=== PATIENT | male | born 1955 | race Caucasian/White ===

== ENCOUNTER → 2016-09-06 | Outpatient (REF) | payer OTHER, MEDICAID ==
[~2016-09-06] MED LIST: ALBU83IN INH; ASPI81TA85 PO; ATOR1TAB18 PO; LISI2.5T3 PO; METO25TAB PO; PLAV75TA38 PO
[2016-09-06 19:05] LABS: ALBUMIN 4.1 GM/DL (3.2-5.2); ALBUMIN/GLOBULIN RATIO 1.32 (1.00-1.93); ALKALINE PHOSPHATASE 77 U/L (45-117); ALT/SGPT 22 U/L (12-78); ANION GAP 6 MEQ/L (8-16); AST/SGOT 17 U/L (15-37); BILIRUBIN,TOTAL 0.7 MG/DL (0.2-1.0); BLOOD UREA NITROGEN 15 MG/DL (7-18); CALCIUM LEVEL 9.2 MG/DL (8.8-10.2); CARBON DIOXIDE LEVEL 30 MEQ/L (21-32); CHLORIDE LEVEL 104 MEQ/L (98-107); CREATININE FOR GFR 0.83 MG/DL (0.70-1.30); GLOMERULAR FILTRATION RATE > 60.0 (>49); GLUCOSE, FASTING 78 MG/DL (80-110); POTASSIUM SERUM 4.5 MEQ/L (3.5-5.1); SODIUM LEVEL 140 MEQ/L (136-145); TOTAL PROTEIN 7.2 GM/DL (6.4-8.2)
[2016-09-06 19:15] LABS: BASO % 0.4 % (0.0-1.0); EOS # 0.1 K/mm3 (0.0-0.50); EOS % 1.6 % (0.0-3.0); LARGE UNSTAINED CELL # 0.1 K/mm3 (0.0-0.4); LARGE UNSTAINED CELL % 1.8 % (0.0-4.0); LYMPH # 1.5 K/mm3 (1.5-4.5); LYMPH % 19.8 % (24.0-44.0); MEAN CORPUSCULAR HEMOGLOBIN 34.6 pg (27.0-33.0); MEAN CORPUSCULAR HGB CONC 33.6 g/dl (32.0-36.5); MONO # 0.4 K/mm3 (0.0-0.8); MONO % 5.1 % (0.0-5.0); NEUTROPHILS # 5.5 K/mm3 (1.8-7.7); NEUTROPHILS % 71.3 % (36.0-66.0); PLATELET COUNT, AUTOMATED 194 k/mm3 (150-450); RED CELL DISTRIBUTION WIDTH 12.8 % (11.5-14.5); WHITE BLOOD COUNT 7.7 K/mm3 (4.0-10.0)
== END ==
LOC: M SFHCCAPE 12:25
PROVIDERS: ATTEND Physician Assistant
DX: F32.1 Major depressive disorder, single episode, moderate (principal)

== ENCOUNTER → 2017-06-10 | Outpatient (REF) | payer OTHER, MEDICAID ==
[2017-06-10 17:38] LABS: ALBUMIN 3.9 GM/DL (3.2-5.2); ALBUMIN/GLOBULIN RATIO 1.34 (1.00-1.93); ALKALINE PHOSPHATASE 94 U/L (45-117); ALT/SGPT 27 U/L (12-78); ANION GAP 8 MEQ/L (8-16); AST/SGOT 20 U/L (7-37); BILIRUBIN,TOTAL 0.4 MG/DL (0.2-1.0); BLOOD UREA NITROGEN 18 MG/DL (7-18); CALCIUM LEVEL 8.6 MG/DL (8.8-10.2); CARBON DIOXIDE LEVEL 28 MEQ/L (21-32); CHLORIDE LEVEL 107 MEQ/L (98-107); CHOLESTEROL LEVEL 111 MG/DL (<200); CHOLESTEROL RISK RATIO 2.361 (<5); CREATININE FOR GFR 0.88 MG/DL (0.70-1.30); GLOMERULAR FILTRATION RATE > 60.0 (>49); GLUCOSE, FASTING 98 MG/DL (70-100); HDL CHOLESTEROL 47 MG/DL (>40); LDL CHOLESTEROL 49.4 MG/DL (<100); MAGNESIUM LEVEL 2.2 MG/DL (1.8-2.4); NON-HDL-C 64 MG/DL; POTASSIUM SERUM 4.1 MEQ/L (3.5-5.1); SODIUM LEVEL 143 MEQ/L (136-145); TOTAL PROTEIN 6.8 GM/DL (6.4-8.2); TRIGLYCERIDES LEVEL 73 MG/DL (<150)
[2017-06-10 19:26] LABS: BASO % 0.5 % (0.0-1.0); EOS # 0.3 10^3/uL (0.0-0.50); EOS % 5.2 % (0.0-3.0); HEMATOCRIT 49.5 % (42.0-52.0); HEMOGLOBIN 16.7 g/dl (14.0-18.0); IMMATURE GRANULOCYTE % 0.2 % (0-3.0); LYMPH # 1.7 10^3/uL (1.5-4.5); LYMPH % 29.7 % (24.0-44.0); MEAN CORPUSCULAR HGB CONC 33.7 g/dl (32.0-36.5); MEAN CORPUSCULAR VOLUME 97.8 fl (80.0-96.0); MONO # 0.5 10^3/uL (0.0-0.8); MONO % 9.4 % (0.0-5.0); NEUTROPHILS # 3.2 10^3/uL (1.8-7.7); PLATELET COUNT, AUTOMATED 157 10^3/uL (150-450); RED BLOOD COUNT 5.06 10^6/uL (4.30-6.10); RED CELL DISTRIBUTION WIDTH 12.1 % (11.5-14.5); WHITE BLOOD COUNT 5.8 10^3/uL (4.0-10.0)
== END ==
LOC: M SFHCCAPE 08:02
DX: E78.2 Mixed hyperlipidemia (principal); I10 Essential (primary) hypertension
CPT/HCPCS: 84443

== ENCOUNTER 2017-06-20 10:59 | Emergency (ER) | payer OTHER, MEDICAID ==
[2017-06-20 11:45] LABS: BASO % 0.6 % (0.0-1.0); EOS # 0.3 10^3/uL (0.0-0.50); EOS % 4.1 % (0.0-3.0); HEMATOCRIT 47.4 % (42.0-52.0); HEMOGLOBIN 16.4 g/dl (14.0-18.0); IMMATURE GRANULOCYTE % 0.3 % (0-3.0); LYMPH # 1.7 10^3/uL (1.5-4.5); LYMPH % 23.8 % (24.0-44.0); MEAN CORPUSCULAR HEMOGLOBIN 33.7 pg (27.0-33.0); MEAN CORPUSCULAR HGB CONC 34.6 g/dl (32.0-36.5); MEAN CORPUSCULAR VOLUME 97.5 fl (80.0-96.0); MONO # 0.6 10^3/uL (0.0-0.8); NEUTROPHILS # 4.5 10^3/uL (1.8-7.7); NEUTROPHILS % 62.2 % (36.0-66.0); PLATELET COUNT, AUTOMATED 137 10^3/uL (150-450); RED BLOOD COUNT 4.86 10^6/uL (4.30-6.10); RED CELL DISTRIBUTION WIDTH 11.9 % (11.5-14.5); WHITE BLOOD COUNT 7.2 10^3/uL (4.0-10.0)
[2017-06-20 12:16] LABS: ANION GAP 5 MEQ/L (8-16); BLOOD UREA NITROGEN 21 MG/DL (7-18); CARBON DIOXIDE LEVEL 30 MEQ/L (21-32); CHLORIDE LEVEL 105 MEQ/L (98-107); CK-MB VALUE MASS 4.8 NG/ML (0.0-3.6); CPK CREATINE PHOSPHOKINASE 304 U/L (39-308); CREATININE FOR GFR 0.84 MG/DL (0.70-1.30); GLOMERULAR FILTRATION RATE > 60.0 (>49); GLUCOSE, FASTING 83 MG/DL (70-100); MB/CK RELATIVE INDEX 1.57 (< OR =4); POTASSIUM SERUM 4.5 MEQ/L (3.5-5.1); SODIUM LEVEL 140 MEQ/L (136-145); TROPONIN I < 0.02 NG/ML (< 0.10)
[2017-06-20] MEDS ORDERED: ISOVUE-370 76% 100ML VIAL (Q9967) As Ordered (15:33)
[2017-06-20] MEDS: SUCRALFATE SUSP 1GM/10ML UD PO (16:32)
[2017-06-20 18:38] LABS: CK-MB VALUE MASS 4.8 NG/ML (0.0-3.6); CPK CREATINE PHOSPHOKINASE 286 U/L (39-308); MB/CK RELATIVE INDEX 1.67 (< OR =4); TROPONIN I < 0.02 NG/ML (< 0.10)
== END 2017-06-20 19:04 | disposition home or self-care (01) ==
LOC: M ED 10:59
DX: R07.9 Chest pain, unspecified (principal); M54.6 Pain in thoracic spine; I10 Essential (primary) hypertension; I25.2 Old myocardial infarction; Z79.82 Long term (current) use of aspirin; Z79.899 Other long term (current) drug therapy
CPT/HCPCS: Q9967

== ENCOUNTER → 2017-11-04 | Outpatient (REF) | payer SELFPAY, OTHER ==
[2017-11-04 17:56] LABS: APPEARANCE, URINE CLEAR (CLEAR); BACTERIA, URINE AUTO NEGATIVE (NEGATIVE); BILIRUBIN, URINE AUTO NEGATIVE (NEGATIVE); BLOOD, URINE BLOOD 2+ (NEGATIVE); COLOR, URINE YELLOW (YELLOW); GLUCOSE, URINE (UA) AUTO NEGATIVE (NEGATIVE); KETONE, URINE AUTO NEGATIVE (NEGATIVE); LEUKOCYTE ESTERASE, URINE AUTO NEGATIVE (NEGATIVE); MUCUS, URINE SMALL (NEGATIVE); NITRITE, URINE AUTO NEGATIVE (NEGATIVE); PROTEIN, URINE AUTO NEGATIVE (NEGATIVE); RBC, URINE AUTO 2 /HPF (0-3); SPECIFIC GRAVITY URINE AUTO 1.012 (1.002-1.035); SQUAMOUS EPITHELIAL CELL UR AU 0 /HPF (0-6); UROBILINOGEN, URINE AUTO 0.2 mg/dL (0.0-2.0); WBC, URINE AUTO 2 /HPF (0-3)
== END ==
LOC: M SFHCCAPE 10:09
DX: R53.83 Other fatigue (principal); R53.81 Other malaise

== ENCOUNTER 2017-11-30 08:18 | Emergency (ER) | payer SELFPAY ==
[2017-11-30] MEDS ORDERED: NEOSPORIN OINT 0.9 GM PKT (FLOOR STOCK) As Ordered (09:47)
[2017-11-30] MEDS: BACTRIM 160MG/800MG DS TAB PO (09:51)
[2017-11-30] MEDS: ADACEL/BOOSTRIX VACCINE (DIPHTH/PERTUSS/ACELL/TETANUS)0.5ML SYR (90715) IM (09:51)
[2017-11-30] MEDS: POLYSPORIN TOPICAL OINTMENT 15GM TOP (09:53)
== END 2017-11-30 10:10 | disposition home or self-care (01) ==
LOC: M ED 08:18
DX: M79.89 Other specified soft tissue disorders (principal); T23.021A Burn of unspecified degree of single right finger (nail) except thumb, initial encounter; X15.2XXA Contact with hotplate, initial encounter; Y92.59 Other trade areas as the place of occurrence of the external cause; Y99.0 Civilian activity done for income or pay; I10 Essential (primary) hypertension; E78.5 Hyperlipidemia, unspecified; I25.10 Atherosclerotic heart disease of native coronary artery without angina pectoris; Z95.1 Presence of aortocoronary bypass graft; Z95.5 Presence of coronary angioplasty implant and graft
CPT/HCPCS: 90715

== ENCOUNTER 2018-05-20 12:17 | Inpatient (IN) | payer OTHER, SELFPAY ==
[~2018-05-20] VITALS: Ht 177.8 cm; Wt 90.9 kg
[~2018-05-20 12:17] MED LIST changes: -ATOR1TAB18 PO; +ATOR80TA59 PO; +BACT800T5 PO; +BREO1INH3 INH; -LISI2.5T3 PO; +LISI2.5T5 PO; +METO25TA4 PO; -METO25TAB PO; +NITR400A5 TL; +PLAV1TAB2 PO; -PLAV75TA38 PO
[2018-05-20 14:40] LABS: HEMATOCRIT 52.7 % (42.0-52.0); HEMOGLOBIN 18.3 g/dl (13.5-17.5); MEAN CORPUSCULAR HEMOGLOBIN 33.8 pg (27.0-33.0); MEAN CORPUSCULAR HGB CONC 34.7 g/dl (32.0-36.5); MEAN CORPUSCULAR VOLUME 97.2 fl (80.0-96.0); PLATELET COUNT, AUTOMATED 133 10^3/uL (150-450); RED BLOOD COUNT 5.42 10^6/uL (4.30-6.10); WHITE BLOOD COUNT 7.9 10^3/uL (4.0-10.0)
[2018-05-20 14:59] LABS: AMPHETAMINES LEVEL URINE NEGATIVE (NEGATIVE); BARBITURATES URINE NEGATIVE (NEGATIVE); BENZODIAZEPINES URINE NEGATIVE (NEGATIVE); CANNABINOIDS URINE POSITIVE (NEGATIVE); COCAINE METABOLITE URINE NEGATIVE (NEGATIVE); METHADONE URINE NEGATIVE (NEGATIVE); OPIATES URINE NEGATIVE (NEGATIVE); PHENCYCLIDINE URINE NEGATIVE (NEGATIVE)
--- NOTE | 2018-05-20 15:26 | REP ---
CT Head without contrast HISTORY: Visual disturbance COMPARISON: None There is no intraparenchymal hemorrhage, acute infarct, mass or midline shift. The ventricular system is normal in appearance. There is no extra cerebral collection. There is no fracture. The visualized sinuses are clear. IMPRESSION: There is no intracranial lesion. Electronically Signed by Ab Francisco MD 05/20/2018 03:18 P
[2018-05-20 15:31] LABS: ACETAMINOPHEN LEVEL < 2.0 UG/ML (10.0-30.0); ALBUMIN 3.8 GM/DL (3.2-5.2); ALT/SGPT 27 U/L (12-78); BILIRUBIN,DIRECT 0.2 MG/DL (0.0-0.2); BILIRUBIN,TOTAL 0.6 MG/DL (0.2-1.0); BLOOD UREA NITROGEN 18 MG/DL (7-18); CALCIUM LEVEL 8.8 MG/DL (8.8-10.2); CARBON DIOXIDE LEVEL 27 MEQ/L (21-32); CHLORIDE LEVEL 103 MEQ/L (98-107); CREATININE FOR GFR 0.99 MG/DL (0.70-1.30); ETHYL ALCOHOL (ETHANOL) < 0.003 % (0.000-0.010); GLOMERULAR FILTRATION RATE > 60.0 (>49); GLUCOSE, FASTING 112 MG/DL (70-100); POTASSIUM SERUM 3.9 MEQ/L (3.5-5.1); SALICYLATE LEVEL < 1.7 MG/DL (5.0-30.0); SODIUM LEVEL 139 MEQ/L (136-145)
[2018-05-20] MEDS ORDERED: MAALOX 30 ML SUSP *UDC PO PRN (16:30)
[2018-05-20] MEDS ORDERED: MOM 30ML SUSPENSION UDC PO PRN (16:30)
[2018-05-20 18:00] VITALS: BP 142/72
[2018-05-20] MEDS ORDERED: NITROGLYCERIN 0.4 MG SUBL TABLET SL PRN (19:45)
[2018-05-20] MEDS: traZODone 50 MG TAB PO PRN (20:52)
[2018-05-20] MEDS: ACETAMINOPHEN TAB 650MG DOSE (2X325MG) PO PRN (20:52)
[2018-05-20] MEDS: LORazepam 1 MG TAB PO PRN (20:53)
[2018-05-20] MEDS: METOPROLOL TART 12.5 MG PER 1/2 TAB PO SCH (20:53)
[2018-05-21 06:59] VITALS: BP 128/75
[2018-05-21] MEDS: ATORVASTATIN 20 MG TAB PO SCH (08:02)
[2018-05-21] MEDS: ASPIRIN 81 MG ENTERIC TAB PO SCH (08:03)
[2018-05-21] MEDS: LISINOPRIL *2.5 MG* TAB PO SCH (08:03)
[2018-05-21] MEDS: METOPROLOL TART 12.5 MG PER 1/2 TAB PO SCH ×2 (08:03→21:40)
--- NOTE | 2018-05-21 09:47 | HPEPDOC ---
[facility] Medical History & Physical Date of Admission May 20, 2018 History and Physical PCP: [facility] ATTENDING: Dr. Lisset Alberto HPI: 62 yo M admitted to [facility] for unspecified depressive disorder, being medically examined today. The patient reported in the emergency department seeing intermittent flashes of light when moving his eyes for the past few months. He states this has not occurred since he has been on the unit. He states it occurs on and off. Not a daily occurrence. He denies blurred vision, diplopia or visual loss. Denies NAVARRO. Denies N/V, photophobia/phonophobia. No recent eye exam. CT head in the emergency department was noted to be negative. No acute medical complaints today. Denies any fevers, chills, weakness, fatigue, CP, SOB, cough, palpitations, abdominal pain, N/V/D or changes in bowel or bladder habits. PMHx: Anxiety Depression Hypertension Dyslipidemia CAD/FL 2016 PSHX: Cardiac stents 2016 Umbilical hernia repair Left wrist fracture repair Low back surgery 2 SOCHX: Resides in: [facility] Marital Status: Single Kids: None Employment: hospital manager Tobacco use: One half pack per day ETOH: One shot of liquor per day Illicit Drugs: Denies IV Drug Use: Denies Tattoos done unprofessionally: Denies FAMHX: Mother: Alive, lupus Father: , old age per patient Siblings: 2 brothers, one sister Alive, well Children: None Unexpected deaths due to medical reasons: None. ROS: As noted in HPI, otherwise 11pt ROS of systems reviewed and unremarkable. PE: GEN: 62 yo M, appears stated age. Well-nourished, well developed. No acute distress. Alert and oriented x 3. Pleasant, interactive. HEENT: Normocephalic, atraumatic. Pupils are equal, round, and reactive to light. Extraocular movements are intact. No nystagmus appreciated. Sclera are nonicteric. Conjunctiva without injection. Nose midline. Nasal turbinates without bogginess. EACs both patent BL. TMs both visualized and arizmendi with good cone of light, no bulging or erythema. No facial asymmetry. Moist mucous membranes. Upper dentures. Pharynx pink and moist, no cobblestoning. Neck supple, trachea midline. No lymphadenopathy or thyromegaly appreciated. CHEST: Regular rate and rhythm, +S1, +S2 LUNGS: Clear to auscultation bilaterally. No wheezes, rales, or rhonchi. Breathing appears symmetric and easy. Patient is speaking in full sentences. No accessory muscle use. ABD: Round, soft, non-tender, non-distended. +Bowel sounds throughout. No rebound or guarding. No costovertebral angle tenderness. EXT: Pulses 2+ bilaterally dorsalis pedis and radial. No lower extremity edema appreciated. SKIN: [place], dry, warm. Capillary refill <2sec. No rashes. NEURO: Alert and oriented x 3. Cranial nerves III-XII are intact. No focal deficits appreciated. EKG: SINUS RHYTHM NONSPECIFIC T-WAVE ABNORMALITY POSSIBLE PRIOR INFERIOR WALL INFARCT COMPARED TO THE LAST 4 TRACINGS IN THE SYSTEM, NO SIGNIFICANT CHANGES Electronically Signed On 06-21-2017 0:23:35 EST by Shaun [facility] There is no intracranial lesion. Electronically Signed by Ab Francisco MD 05/20/2018 03:18 P A&P: 62 yo M admitted to [facility] for unspecified depressive disorder, 1. Psych. Plan per Psychiatry. EKG on file. 2. Nicotine dependence. Patch available. 3. CAD/stent. Continue aspirin 81 mg daily. Continue Lipitor 80 mg daily. Continue Lopressor 12.5 mg by mouth twice a day. Patient denies any chest discomfort symptoms. Continue outpatient follow-up with PCP. 4. Follow up with PCP on discharge. 5. Hypertension. BP 120/70. Continue Lopressor 12.5 mg by mouth twice a day. Continue lisinopril 2.5 mg daily. Monitor. 6. Dyslipidemia. Continue Lipitor 80 mg by mouth daily. 7. Visual disturbance. [facility] 05/20/18 neg. Pt states it has not been occurring while on the unit. Monitor and consider further testing if recurs. 8. Staff member Fausto present throughout exam. Vital Signs Vital Signs Date Time Temp Pulse Resp B/P (MAP) Pulse Ox O2 Delivery O2 Flow Rate FiO2 05/21/18 08:03 88 120/70 05/21/18 06:59 99.1 18 05/20/18 18:00 93 Room Air Laboratory Data Labs 24H Laboratory Tests 2 05/20/18 14:29: Nucleated Red Blood Cells % (auto) 0.0, Anion Gap 9, Glomerular Filtration Rate > 60.0, Calcium Level 8.8, Aspartate Amino Transf (AST/SGOT) 25, Alanine Aminotransferase (ALT/SGPT) 27, Alkaline Phosphatase 75, Total Bilirubin 0.6, Direct Bilirubin 0.2, Total Protein 7.0, Albumin 3.8, Albumin/Globulin Ratio 1.19, Thyroid Stimulating Hormone (TSH) 1.080, Salicylates Level < 1.7L, Urine Amphetamines Screen NEGATIVE, Urine Benzodiazepines Screen NEGATIVE, Urine Opiates Screen NEGATIVE, Urine Methadone Screen NEGATIVE, Acetaminophen Level < 2.0L, Urine Barbiturates Screen NEGATIVE, Urine Phencyclidine Screen NEGATIVE, Urine Cocaine Metabolite Screen NEGATIVE, Urine Cannabinoids Screen POSITIVEH, Ethyl Alcohol Level < 0.003 CBC/BMP Laboratory Tests 05/20/18 14:29 Red Blood Count 5.42, Mean Corpuscular Volume 97.2 H, Mean Corpuscular Hemoglobin 33.8 H, Mean Corpuscular Hemoglobin Concent 34.7, Red Cell Distribution Width 12.1 Home Medications Scheduled Atorvastatin Calcium (Atorvastatin Calcium) 80 Mg Tab, 80 MG PO DAILY Lisinopril (Lisinopril) 2.5 Mg Tab, 2.5 MG PO DAILY Metoprolol Tartrate (Metoprolol Tartrate) 25 Mg Tab, 0.5 TAB PO BID Scheduled PRN (Nitroglycerin Lingual) 400 Mcg/[place] Aer, 400 MCG TL for ANGINA Miscellaneous Medications Aspirin (Aspir-81) 81 Mg Tab, 81 MG PO Allergies Coded Allergies: No Known Allergies (Unverified , 04/20/16) Nancy Ferrara May 21, 2018 09:47
[2018-05-21] MEDS ORDERED: SERTRALINE HCL 25 MG TABLET PO ONE (11:15)
--- NOTE | 2018-05-21 11:49 | MHHPEPDOC ---
General Date Of Admission: May 20, 2018 Legal Status: 9.13 Chief Complaint "I've been feeling seriously depressed for the past 2 days." History of Present Illness HISTORY OF THE PRESENT ILLNESS: Patient is a 62 -year-old , male, with no previous psych history who presented to ED with complaint of increasing depression for the past 2 days that is worse when he's home alone rather than at work where it isn't as bad. He endorsed associated decreased appetite and insomnia secondary to depressed mood in the ED. Endorsed psychosocial stressors that included his finances, work, and loss of his father 1 year ago. Per ED, pt was tearful at times. He did deny SI/HI in the ED. He does have a supportive girlfriend for the 18yrs. Pt seen and states he's had a "blanket of depression" hit him with all the stressors he has going on in his life. States that home is getting to be too much for him especially with the finances. States he and his girlfriend are renting a home together and pitch in the pay the monthly fee but her 2 adult children are also there and don't pay any of the bills after it was first agreed when they moved in that they would. States it's just becoming too much and wants to move out and live on his own, possibly in [place] close to his family that he is very close with when his lease ends in June. States he's told his girlfriend and she supports his decision. States he also feels that he and his girlfriend are more friends than a couple as he's sleeping on the couch and just doesn't feel he gets companionship from his girlfriend. States she is a good friend though. States his work is very supportive and he's well paid but that the finances at home are just too much causing a lot of stress that leads to insomnia. Denies SI/HI, hallucinations, delusions. Agreeable to start zoloft for depression, risks/benefits discussed. Feels safe here. Psychiatric Review of Systems Depression (2 or more weeks): depressed mood, insomnia/hypersomnia (insomnia), difficulty concentrating, appetite changes [place] (4 or more days of): denies Psychosis: denies Anxiety: situational anxiety, stressor related anxiety Anxiety/ 6 months or more of: difficulty concentrating, sleep disturbance Past Psychiatric History Previous Psychiatric Diagnosis: denies Previous Psychiatric Admissions: denies Suicide Attempts: denies Psychiatric Follow-up: denies Psychiatric medications: tried something 1yr ago for depression prescribed by his pcp that he only took for 2 days b/c he didn't like the way it made him feel Past Medical History Medical Problems high cholesterol, htn Head Injury: No Seizures: No Hospitalizations: No Surgeries: Yes (low back surgery x2, left wrist fracture repair) Family Medical/Psychiatric HX Medical Problems noncontributory Psychiatric Disorders: No Addiction: No Suicide Attemps/Completions: No Addiction History nicotine, alcohol (1 vodka shot on the rocks when at work after shift at work only 6days/wk; doesn't drink anymore than 1) Social History Childhood: born and raised in [place], 2 parent home, 2 brothers (1 older and 1 younger), 1 younger sister. [place] child [place]. Supportive family. [place]. Family in [place] and would like to move back there and be closer to them as he has good relationships with them all. 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 , no kids Mental Status Examination General Appearance: well groomed, appears stated age, hospital scubs/clothing Build: average Demeanor: average, other (pleasant) Eye Contact: average Activity: average Behavior: cooperative Speech: clear, normal volume, reg/rate,rhythm,volume Mood: depressed, anxious Mood overwhelmed Affect: constricted, appropriate, congruent, anxious Thought Process: logical/linear, depressed, intact Thought Content (Delusions): none reported, denies SI, HI, AVH Thought Content (Other): none reported, appropriate Thought Content (Aggressive): none reported Perception (Hallucinations): none reported Perception (Other): none reported Cognition (Impairment of): none reported Cognition(Intelligence Est.): average Oriented: Awake, Alert, Oriented times three Insight: fair Judgment: Fair Psychosis: Denies Diagnoses depression unspecified r/o adjustment d/o with anxiety and depression r/o generalized anxiety d/o complicated bereavement Assessment Pt seen and states he's had a "blanket of depression" hit him with all the stressors he has going on in his life. States that home is getting to be too much for him especially with the finances. States he and his girlfriend are renting a home together and pitch in the pay the monthly fee but her 2 adult children are also there and don't pay any of the bills after it was first agreed when they moved in that they would. States it's just becoming too much and wants to move out and live on his own, possibly in [place] close to his family that he is very close with when his lease ends in June. States he's told his girlfriend and she supports his decision. States he also feels that he and his girlfriend are more friends than a couple as he's sleeping on the couch and just doesn't feel he gets companionship from his girlfriend. States she is a good friend though. States his work is very supportive and he's well paid but that the finances at home are just too much causing a lot of stress that leads to insomnia. Denies SI/HI, hallucinations, delusions. Agreeable to start zoloft for depression, risks/benefits discussed. Feels safe here. Pt appears to most likely be suffer from an adjustment d/o with depression and anxiety symptoms zapata to current psychiatric stressors. Initial Treatment Plan 1. Patient was admitted on a 9.13 status. 2. Complete history was obtained. 3. With patients permission, family will be contacted and database will be expanded. 4. Patients medication regimen will be reviewed and changed accordingly. 5. Patient will be provided with protected environment. 6. Patient will be treated with individual, group, and milieu therapies. 7. Patient will receive supportive psych-education. 8. Discharge planning will commence immediately. 9. Outpatient follow-up treatment will be strongly recommended. 10. The initial treatment plan will focus initially on: * Depression. * Risk for suicide. * Substance abuse. 11. zoloft 25mg daily ESTIMATED LENGTH OF STAY: 3-5 DAYS. TIME SPENT COUNSELING AND COORDINATING INITIAL CARE: 60 minutes. Vital Signs Vital Signs Date Time Temp Pulse Resp B/P (MAP) Pulse Ox O2 Delivery O2 Flow Rate FiO2 05/21/18 08:03 88 120/70 05/21/18 06:59 99.1 18 05/20/18 18:00 93 Room Air Laboratory Data 24H Labs Laboratory Tests 2 05/20/18 14:29: Nucleated Red Blood Cells % (auto) 0.0, Anion Gap 9, Glomerular Filtration Rate > 60.0, Calcium Level 8.8, Aspartate Amino Transf (AST/SGOT) 25, Alanine Aminotransferase (ALT/SGPT) 27, Alkaline Phosphatase 75, Total Bilirubin 0.6, Direct Bilirubin 0.2, Total Protein 7.0, Albumin 3.8, Albumin/Globulin Ratio 1.19, Thyroid Stimulating Hormone (TSH) 1.080, Salicylates Level < 1.7L, Urine Amphetamines Screen NEGATIVE, Urine Benzodiazepines Screen NEGATIVE, Urine Opiates Screen NEGATIVE, Urine Methadone Screen NEGATIVE, Acetaminophen Level < 2.0L, Urine Barbiturates Screen NEGATIVE, Urine Phencyclidine Screen NEGATIVE, Urine Cocaine Metabolite Screen NEGATIVE, Urine Cannabinoids Screen POSITIVEH, Ethyl Alcohol Level < 0.003 CBC/BMP Laboratory Tests 05/20/18 14:29 Red Blood Count 5.42, Mean Corpuscular Volume 97.2 H, Mean Corpuscular Hemoglobin 33.8 H, Mean Corpuscular Hemoglobin Concent 34.7, Red Cell Distribution Width 12.1 Medications Scheduled Atorvastatin Calcium (Atorvastatin Calcium) 80 Mg Tab, 80 MG PO DAILY, (Reported) Lisinopril (Lisinopril) 2.5 Mg Tab, 2.5 MG PO DAILY, (Reported) Metoprolol Tartrate (Metoprolol Tartrate) 25 Mg Tab, 0.5 TAB PO BID, (Reported) Scheduled PRN (Nitroglycerin Lingual) 400 Mcg/[place] Aer, 400 MCG TL for ANGINA, (Reported) Miscellaneous Medications Aspirin (Aspir-81) 81 Mg Tab, 81 MG PO, (Reported) Allergies Coded Allergies: No Known Allergies (Unverified , 04/20/16) ZEYNEP GRAY DO May 21, 2018 11:49
[2018-05-21] MEDS: NICOTINE 21MG/24HR 1 EA TRANSDERMAL TD SCH (17:45)
[2018-05-21 18:46] VITALS: BP 130/60
[2018-05-21] MEDS: LORazepam 1 MG TAB PO PRN (21:39)
[2018-05-21] MEDS: traZODone 50 MG TAB PO PRN (21:39)
[2018-05-22] MEDS: ACETAMINOPHEN TAB 650MG DOSE (2X325MG) PO PRN (06:24)
[2018-05-22 06:32] VITALS: BP_SYST 132; BP_SYST 154; BP_DIAS 63; BP_DIAS 84
[2018-05-22 08:10] LABS: HEMATOCRIT 50.9 % (42.0-52.0); HEMOGLOBIN 17.4 g/dl (13.5-17.5); MEAN CORPUSCULAR HEMOGLOBIN 33.6 pg (27.0-33.0); MEAN CORPUSCULAR HGB CONC 34.2 g/dl (32.0-36.5); MEAN CORPUSCULAR VOLUME 98.3 fl (80.0-96.0); PLATELET COUNT, AUTOMATED 136 10^3/uL (150-450); RED BLOOD COUNT 5.18 10^6/uL (4.30-6.10); WHITE BLOOD COUNT 6.4 10^3/uL (4.0-10.0)
[2018-05-22 08:41] VITALS: BP 132/63
[2018-05-22] MEDS: NICOTINE 21MG/24HR 1 EA TRANSDERMAL TD SCH (08:41)
[2018-05-22] MEDS: ATORVASTATIN 20 MG TAB PO SCH (08:41)
[2018-05-22] MEDS: METOPROLOL TART 12.5 MG PER 1/2 TAB PO SCH (08:41)
[2018-05-22] MEDS: ASPIRIN 81 MG ENTERIC TAB PO SCH (08:41)
[2018-05-22] MEDS: LISINOPRIL *2.5 MG* TAB PO SCH (08:41)
[2018-05-22] MEDS ORDERED: SERTRALINE HCL 25 MG TABLET PO SCH (09:00)
--- NOTE | 2018-05-22 09:41 | MHDSPDOC ---
[facility] Discharge Summary Discharge Summary DATE OF ADMISSION: May 20, 2018 at 16:17 DATE OF DISCHARGE: May 22, 2018 DISCHARGE DIAGNOSES: depression unspecified r/o adjustment d/o with anxiety and depression r/o generalized anxiety d/o complicated bereavement REASON FOR ADMISSION: Patient is a 62 -year-old , male, with no previous psych history who presented to ED with complaint of increasing depression for the past 2 days that is worse when he's home alone rather than at work where it isn't as bad. He endorsed associated decreased appetite and insomnia secondary to depressed mood in the ED. Endorsed psychosocial stressors that included his finances, work, and loss of his father 1 year ago. Per ED, pt was tearful at times. He did deny SI/HI in the ED. He does have a supportive girlfriend for the 18yrs. Pt seen and states he's had a "blanket of depression" hit him with all the stressors he has going on in his life. States that home is getting to be too much for him especially with the finances. States he and his girlfriend are carmelita ting a home together and pitch in the pay the monthly fee but her 2 adult children are also there and don't pay any of the bills after it was first agreed when they moved in that they would. States it's just becoming too much and wants to move out and live on his own, possibly in [place] close to his family that he is very close with when his lease ends in June. States he's told his girlfriend and she supports his decision. States he also feels that he and his girlfriend are more friends than a couple as he's sleeping on the couch and just doesn't feel he gets companionship from his girlfriend. States she is a good friend though. States his work is very supportive and he's well paid but that the finances at home are just too much causing a lot of stress that leads to insomnia. Denies SI/HI, hallucinations, delusions. Agreeable to start zoloft for depression, risks/benefits discussed. Feels safe here. CONSULTANTS INVOLVED: medicine regarding "flashes in vision" and recommended opt homology visit outpatient to evaluate. Pt does endorse floaters in vision so possibly has cataracts. TREATMENT AND PROGRESS ON THE UNIT : Pt was admitted to [facility], seen for psychiatric assessment and started on zoloft 25mg daily for mood. He was provided trazodone 50mg qhs prn insomnia. Pt found his medications beneficial and tolerated them well. He attended groups daily during his stay. His symptoms improved with treatment. On day of discharge he denied depression, anxiety, insomnia, SI/HI, hallucinations, delusions. He was discharged home with follow-up at [facility]. He felt safe for discharge DISCHARGE ASSESSMENT: Pt seen and states that his mood is good and that he's tolerating his zoloft, denies side effects, feels is beneficial. States he slept well last night with use of trazodone. Feels he is tolerating his medications and they're beneficial. He is attending groups and finding them helpful. He denies depression, anxiety, insomnia, SI/HI, hallucinations, delusions. Pt feels safe to be discharged home. MENTAL STATUS EXAMINATION ON DISCHARGE: General Appearance: well groomed, appears stated age, hospital scrubs/clothing Build: average Demeanor: average, other (pleasant) Eye Contact: average Activity: average Behavior: cooperative Speech: clear, normal volume, reg/rate,rhythm,volume Mood: euthymic Mood "ok" Affect: euthymic, appropriate, congruent, calm Thought Process: logical/linear, intact Thought Content (Delusions): none reported, denies SI, HI, AVH. States "I'm a Yarsanism and wouldn't ever harm myself...That's just not an option as I want to reach salvation when I eventually." Thought Content (Other): none reported, appropriate Thought Content (Aggressive): none reported Perception (Hallucinations): none reported Perception (Other): none reported Cognition (Impairment of): none reported Cognition(Intelligence Est.): average Oriented: Awake, Alert, Oriented times three Insight: good Judgment: good Psychosis: Denies MEDICATIONS ON DISCHARGE: zoloft 25mg daily PLAN/FOLLOWUP ARRANGEMENTS: D/c home with follow-up at [facility] and opthomology doctor. The amount of time spent in the coordination of care for this patient was approximately 30 minutes. Vital Signs/I&Os Vital Signs Date Time Temp Pulse Resp B/P (MAP) Pulse Ox O2 Delivery O2 Flow Rate FiO2 05/22/18 08:41 74 132/63 05/22/18 06:32 97.6 20 Room Air 05/20/18 18:00 93 Laboratory Data Labs 24H Laboratory Tests 2 05/22/18 07:34: Nucleated Red Blood Cells % (auto) 0.0 CBC/BMP Laboratory Tests 05/22/18 07:34 Red Blood Count 5.18, Mean Corpuscular Volume 98.3 H, Mean Corpuscular Hemoglobi n 33.6 H, Mean Corpuscular Hemoglobin Concent 34.2, Red Cell Distribution Width 11.9 Medications Scheduled Atorvastatin Calcium (Atorvastatin Calcium) 80 Mg Tab, 80 MG PO DAILY, (Reported) Lisinopril (Lisinopril) 2.5 Mg Tab, 2.5 MG PO DAILY, (Reported) Metoprolol Tartrate (Metoprolol Tartrate) 25 Mg Tab, 0.5 TAB PO BID, (Reported) Scheduled PRN (Nitroglycerin Lingual) 400 Mcg/[place] Aer, 400 MCG TL for ANGINA, (Reported) Miscellaneous Medications Aspirin (Aspir-81) 81 Mg Tab, 81 MG PO, (Reported) Allergies Coded Allergies: No Known Allergies (Unverified , 04/20/16) ZEYNEP GRAY DO May 22, 2018 09:41
[2018-05-22] MEDS ORDERED: SERT25TA PO (09:43)
[2018-05-22] MEDS ORDERED: TRAZO50TA PO (09:43)
== END 2018-05-22 13:39 | disposition home or self-care (01) | DRG 754 ==
LOC: M ED 12:17 → M ED INP 16:17 → M PSY 17:14
PROVIDERS: ADMIT Psychiatry & Neurology Psychiatry; ATTEND Psychiatry & Neurology Psychiatry
DX: F32.9 Major depressive disorder, single episode, unspecified (principal); H43.393 Other vitreous opacities, bilateral; I10 Essential (primary) hypertension; F43.23 Adjustment disorder with mixed anxiety and depressed mood; F41.1 Generalized anxiety disorder; F17.200 Nicotine dependence, unspecified, uncomplicated; E78.5 Hyperlipidemia, unspecified; I25.10 Atherosclerotic heart disease of native coronary artery without angina pectoris; I25.2 Old myocardial infarction; Z95.5 Presence of coronary angioplasty implant and graft; Z87.81 Personal history of (healed) traumatic fracture; Z79.899 Other long term (current) drug therapy

== ENCOUNTER 2018-05-23 16:22 | Emergency (ER) | payer OTHER ==
[~2018-05-23] VITALS: Ht 177.8 cm; Wt 90.5 kg
[~2018-05-23 16:22] MED LIST changes: +SERT25TA PO; +TRAZO50TA PO
[2018-05-23 17:56] VITALS: BP 134/65
== END 2018-05-23 18:04 | disposition home or self-care (01) ==
LOC: M ED 16:22
DX: F33.9 Major depressive disorder, recurrent, unspecified (principal); I10 Essential (primary) hypertension; I25.10 Atherosclerotic heart disease of native coronary artery without angina pectoris; I25.2 Old myocardial infarction; E78.00 Pure hypercholesterolemia, unspecified; F41.9 Anxiety disorder, unspecified; F17.210 Nicotine dependence, cigarettes, uncomplicated

== ENCOUNTER → 2018-12-22 | Outpatient (REF) | payer OTHER, SELFPAY ==
[~2018-12-22] MED LIST changes: +LISI-1046 PO; -LISI2.5T5 PO; -SERT25TA PO; +SERT25TA85 PO; +TRAZ1TAB10 PO; -TRAZO50TA PO
[2018-12-22 16:42] LABS: APPEARANCE, URINE TURBID (CLEAR); BACTERIA, URINE AUTO NEGATIVE (NEGATIVE); BILIRUBIN, URINE AUTO NEGATIVE (NEGATIVE); BLOOD, URINE BLOOD 2+ (NEGATIVE); COLOR, URINE YELLOW (YELLOW); GLUCOSE, URINE (UA) AUTO NEGATIVE (NEGATIVE); KETONE, URINE AUTO NEGATIVE (NEGATIVE); LEUKOCYTE ESTERASE, URINE AUTO NEGATIVE (NEGATIVE); NITRITE, URINE AUTO NEGATIVE (NEGATIVE); PROTEIN, URINE AUTO NEGATIVE (NEGATIVE); RBC, URINE AUTO 0 /HPF (0-3); SPECIFIC GRAVITY URINE AUTO 1.026 (1.002-1.035); SQUAMOUS EPITHELIAL CELL UR AU 0 /HPF (0-6); UROBILINOGEN, URINE AUTO 0.2 mg/dL (0.0-2.0); WBC, URINE AUTO 0 /HPF (0-3)
[2018-12-22 16:44] LABS: BASO % 0.5 % (0.0-1.0); EOS # 0.2 10^3/uL (0.0-0.50); EOS % 3.3 % (0.0-3.0); HEMATOCRIT 52.1 % (42.0-52.0); HEMOGLOBIN 17.5 g/dl (13.5-17.5); LYMPH # 1.4 10^3/uL (1.5-4.5); LYMPH % 21.9 % (24.0-44.0); MEAN CORPUSCULAR HEMOGLOBIN 34.7 pg (27.0-33.0); MEAN CORPUSCULAR HGB CONC 33.6 g/dl (32.0-36.5); MEAN CORPUSCULAR VOLUME 103.2 fl (80.0-96.0); MONO # 0.6 10^3/uL (0.0-0.8); MONO % 9.4 % (0.0-5.0); NEUTROPHILS # 4.1 10^3/uL (1.8-7.7); NEUTROPHILS % 64.7 % (36.0-66.0); PLATELET COUNT, AUTOMATED 146 10^3/uL (150-450); RED BLOOD COUNT 5.05 10^6/uL (4.30-6.10); WHITE BLOOD COUNT 6.4 10^3/uL (4.0-10.0)
[2018-12-22 17:06] LABS: HEMOGLOBIN A1c 5.4 %
[2018-12-22 17:14] LABS: ALBUMIN 3.9 GM/DL (3.2-5.2); ALT/SGPT 30 U/L (12-78); BILIRUBIN,TOTAL 0.5 MG/DL (0.2-1.0); BLOOD UREA NITROGEN 26 MG/DL (7-18); CALCIUM LEVEL 9.1 MG/DL (8.8-10.2); CARBON DIOXIDE LEVEL 31 MEQ/L (21-32); CHLORIDE LEVEL 105 MEQ/L (98-107); CHOLESTEROL LEVEL 124 MG/DL (<200); CHOLESTEROL RISK RATIO 2.695 (<5); CREATININE FOR GFR 0.93 MG/DL (0.70-1.30); GLOMERULAR FILTRATION RATE > 60.0 (>49); GLUCOSE, FASTING 101 MG/DL (70-100); HDL CHOLESTEROL 46 MG/DL (>40); LDL CHOLESTEROL 66 MG/DL (<100); NON-HDL-C 78 MG/DL; POTASSIUM SERUM 4.3 MEQ/L (3.5-5.1); SODIUM LEVEL 139 MEQ/L (136-145); THYROID STIMULATING HORMONE 0.917 uIU/ML (0.358-3.740); TOTAL PROTEIN 6.8 GM/DL (6.4-8.2); TRIGLYCERIDES LEVEL 59 MG/DL (<150)
[2018-12-26 14:28] LABS: TESTOSTERONE %FREE+WEAKLY BOUN 13.6 % (9.0-46.0); TESTOSTERONE FREE+WEAKLY BOUND 74.4 ng/dL (40.0-250.0); TESTOSTERONE TOTAL 547 ng/dL (264-916)
== END ==
LOC: M SFHCCAPE 08:37
PROVIDERS: ATTEND Physician Assistant
DX: I10 Essential (primary) hypertension (principal); Z12.5 Encounter for screening for malignant neoplasm of prostate
CPT/HCPCS: 80053; 80061; 81001; 83036; 84410; 84443; 85025; G0103

== ENCOUNTER → 2019-04-30 | Outpatient (REF) | payer OTHER, SELFPAY ==
[2019-04-30 17:27] LABS: BASO % 0.6 % (0.0-1.0); EOS # 0.2 10^3/uL (0.0-0.5); EOS % 3.5 % (0.0-3.0); HEMATOCRIT 49.4 % (42.0-52.0); HEMOGLOBIN 16.5 g/dl (13.5-17.5); LYMPH # 1.3 10^3/uL (1.5-5.0); LYMPH % 18.1 % (24.0-44.0); MEAN CORPUSCULAR HEMOGLOBIN 33.7 pg (27.0-33.0); MEAN CORPUSCULAR HGB CONC 33.4 g/dl (32.0-36.5); MEAN CORPUSCULAR VOLUME 100.8 fl (80.0-96.0); MONO # 0.5 10^3/uL (0.0-0.8); MONO % 7.4 % (0.0-5.0); NEUTROPHILS # 4.9 10^3/uL (1.5-8.5); NEUTROPHILS % 70.3 % (36.0-66.0); PLATELET COUNT, AUTOMATED 204 10^3/uL (150-450); WHITE BLOOD COUNT 6.9 10^3/uL (4.0-10.0)
[2019-04-30 17:57] LABS: ALBUMIN 3.6 GM/DL (3.2-5.2); ALT/SGPT 19 U/L (12-78); BILIRUBIN,TOTAL 0.5 MG/DL (0.2-1.0); BLOOD UREA NITROGEN 22 MG/DL (7-18); CALCIUM LEVEL 9.1 MG/DL (8.8-10.2); CARBON DIOXIDE LEVEL 27 MEQ/L (21-32); CHLORIDE LEVEL 105 MEQ/L (98-107); GLOMERULAR FILTRATION RATE > 60.0 (>49); GLUCOSE, FASTING 88 MG/DL (70-100); POTASSIUM SERUM 4.4 MEQ/L (3.5-5.1); SODIUM LEVEL 139 MEQ/L (136-145)
[2019-04-30 18:10] LABS: VITAMIN B12 LEVEL 210 PG/ML
[2019-04-30 18:11] LABS: FOLATE 11.4 NG/ML
== END ==
LOC: M SFHCCAPE 16:41
PROVIDERS: ATTEND Physician Assistant
DX: R79.89 Other specified abnormal findings of blood chemistry (principal)

== ENCOUNTER → 2019-05-06 | Outpatient (CLI) | payer OTHER, SELFPAY ==
--- NOTE | 2019-05-07 11:22 | REP ---
Clinical: Bilateral shoulder pain. Technique: Internal rotation, external rotation, and Y view of the right and left shoulder. Findings: Right shoulder demonstrates mild cortical irregularity at the acromioclavicular joint as well as subtle irregularity and blunting along the inferior glenoid rim. The subacromial space is normal. The humeral head is normal in appearance. No periarticular calcifications or loose bodies noted. No acute fracture or dislocation. Left shoulder demonstrates minimal cortical irregularity at the acromioclavicular joint as well as mild irregularity of the glenoid rim and early spurring along the inferior margin of the humeral head. Subacromial space is normal. No periarticular calcifications or loose bodies noted. No acute fracture or dislocation. Impression: Mild arthritic changes to the bilateral shoulders (left greater than right). Electronically Signed by Edmundo Bob MD 05/07/2019 05:21 A
--- NOTE | 2019-05-07 11:22 | REP ---
Clinical: Right foot pain. Technique: AP, lateral, bilateral oblique views of the right foot. Findings: Generalized age-related changes are appreciated without significant overt osteoarthritic or inflammatory arthritic findings. No acute fracture dislocation. No subcutaneous emphysema or foreign body. Impression: Generalized age-related changes. Electronically Signed by Edmundo Bob MD 05/07/2019 05:22 A
== END ==
LOC: M CLY 13:49
PROVIDERS: ATTEND Physician Assistant
DX: M79.671 Pain in right foot (principal); M25.511 Pain in right shoulder; M25.512 Pain in left shoulder

== ENCOUNTER → 2019-10-02 | Outpatient (REF) | payer OTHER ==
[~2019-10-02] MED LIST changes: -LISI-1046 PO; +LISI2.5T2 PO
[2019-10-02 17:00] LABS: BASO % 0.6 % (0.0-1.0); EOS # 0.5 10^3/uL (0.0-0.5); EOS % 7.9 % (0.0-3.0); HEMATOCRIT 50.3 % (42.0-52.0); HEMOGLOBIN 16.9 g/dl (13.5-17.5); LYMPH # 1.4 10^3/uL (1.5-5.0); LYMPH % 20.3 % (24.0-44.0); MEAN CORPUSCULAR HEMOGLOBIN 34.1 pg (27.0-33.0); MEAN CORPUSCULAR HGB CONC 33.6 g/dl (32.0-36.5); MEAN CORPUSCULAR VOLUME 101.4 fl (80.0-96.0); MONO # 0.6 10^3/uL (0.0-0.8); MONO % 9.5 % (0.0-5.0); NEUTROPHILS # 4.1 10^3/uL (1.5-8.5); NEUTROPHILS % 61.6 % (36.0-66.0); PLATELET COUNT, AUTOMATED 166 10^3/uL (150-450); RED BLOOD COUNT 4.96 10^6/uL (4.30-6.10); WHITE BLOOD COUNT 6.7 10^3/uL (4.0-10.0)
[2019-10-02 17:34] LABS: ALBUMIN 3.6 GM/DL (3.2-5.2); ALT/SGPT 23 U/L (12-78); BILIRUBIN,TOTAL 0.4 MG/DL (0.2-1.0); BLOOD UREA NITROGEN 21 MG/DL (7-18); CALCIUM LEVEL 8.6 MG/DL (8.8-10.2); CARBON DIOXIDE LEVEL 30 MEQ/L (21-32); CHLORIDE LEVEL 108 MEQ/L (98-107); CHOLESTEROL LEVEL 126 MG/DL (<200); CHOLESTEROL RISK RATIO 2.863 (<5); CREATININE FOR GFR 0.88 MG/DL (0.70-1.30); FREE T4 1.16 NG/DL (0.76-1.46); GLOMERULAR FILTRATION RATE > 60.0 (>49); GLUCOSE, FASTING 93 MG/DL (70-100); HDL CHOLESTEROL 44 MG/DL (>40); LDL CHOLESTEROL 59 MG/DL (<100); NON-HDL-C 82 MG/DL; POTASSIUM SERUM 4.5 MEQ/L (3.5-5.1); SODIUM LEVEL 141 MEQ/L (136-145); TOTAL PROTEIN 6.4 GM/DL (6.4-8.2); TRIGLYCERIDES LEVEL 117 MG/DL (<150)
[2019-10-02 17:36] LABS: VITAMIN B12 LEVEL 525 PG/ML (247-911)
== END ==
LOC: M SFHCCLAY 11:49
PROVIDERS: ATTEND Physician Assistant
DX: E53.8 Deficiency of other specified B group vitamins (principal); I10 Essential (primary) hypertension; E78.5 Hyperlipidemia, unspecified

== ENCOUNTER → 2020-02-18 | Outpatient (CLI) | payer OTHER ==
[~2020-02-18] MED LIST changes: -ASPI81TA85 PO; +ASPI81TA86 PO
--- NOTE | 2020-02-18 11:34 | REP ---
INDICATION: SMOKER COMPARISON: 06/20/2017 TECHNIQUE: Axial noncontrast images from the thoracic inlet to the upper abdomen using low-dose lung screening technique (LDCT). 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 Relatively new subtle nodular opacities in the basilar right upper lobe (image 45) and within the right lower lobe are now identified. Largest such area measures approximately 9 mm in the posterior right lung base (image 83). Stable atherosclerotic changes to the thoracic aorta and coronary arteries again noted. Tracheobronchial tree is patent. No effusion. No pneumothorax. IMPRESSION: Lung-RADS category 3. Management recommendations include 6 month low-dose CT re-evaluation. <Electronically signed by Edmundo Bob > 02/18/20 [id number]
== END ==
LOC: M RAD 09:43
PROVIDERS: ATTEND Physician Assistant
DX: F17.218 Nicotine dependence, cigarettes, with other nicotine-induced disorders (principal); Z12.2 Encounter for screening for malignant neoplasm of respiratory organs; J43.9 Emphysema, unspecified; R91.8 Other nonspecific abnormal finding of lung field; I70.0 Atherosclerosis of aorta; I25.10 Atherosclerotic heart disease of native coronary artery without angina pectoris

== ENCOUNTER → 2020-03-03 | Outpatient (CLI) | payer OTHER ==
--- NOTE | 2020-03-03 13:17 | PFTRPT ---
Height: 70.00 Inches Weight: 189.00 Lbs BSA: 2.04 Diagnosis: J43.1 DATE: 03/03/2020 ORDERING PHYSICIAN: Héctor Olivier Pre and post bronchodilator studies have excellent technical quality. Forced vital capacity is reduced. FEV1 is out of proportion. Obstructive index is therefore reduced. Expiratory limit within the flow-volume loop is consistent with significant flow rate limitation. Very favorable bronchodilator response is identified. Total lung capacity is elevated. Residual volume is consistent with air trapping. Diffusing capacity minimally reduced but does correct for alveolar volume. Hemoglobin is acceptable at 14.3. Airway resistance elevated with a concomitant decrease in airway conductance. IMPRESSION: At least moderate obstructive ventilatory impairment with concomitant air trapping but favorable bronchodilator response. Please correlate clinically. MTDD
== END ==
LOC: M CARPUL 08:32
PROVIDERS: ATTEND Physician Assistant
DX: J43.1 Panlobular emphysema (principal)

== ENCOUNTER → 2021-05-25 | Outpatient (CLI) | payer OTHER ==
[~2021-05-25] MED LIST changes: -LISI2.5T2 PO; +LISI2.5T9 PO
== END ==
LOC: M PLAIMG 08:40
PROVIDERS: ATTEND Physician Assistant
DX: R51.9 Headache, unspecified (principal); V89.2XXD Person injured in unspecified motor-vehicle accident, traffic, subsequent encounter

== ENCOUNTER → 2022-02-12 | Outpatient (CLI) | payer MEDICARE ==
[~2022-02-12] MED LIST changes: +ALBU2.5V10 INH; -ALBU83IN INH
== END ==
LOC: M RAD 06:50
PROVIDERS: ATTEND Physician Assistant
DX: Z87.891 Personal history of nicotine dependence (principal)

== ENCOUNTER 2022-04-26 10:13 | Emergency (ER) | payer MEDICARE ==
[~2022-04-26] VITALS: Ht 177.8 cm; Wt 91.7 kg
[~2022-04-26 10:13] MED LIST changes: +CLOP75TA99 PO; -PLAV1TAB2 PO
[2022-04-26] MEDS ORDERED: FLUT1BLS8 INH (10:32)
[2022-04-26] MEDS ORDERED: AMIT25TA17 PO (10:32)
[2022-04-26 11:18] LABS: BASO % 0.5 % (0.0-1.0); EOS # 0.2 10^3/uL (0.0-0.5); EOS % 3.5 % (0.0-3.0); HEMATOCRIT 52.5 % (42.0-52.0); HEMOGLOBIN 17.7 g/dl (13.5-17.5); LYMPH # 1.2 10^3/uL (1.5-5.0); LYMPH % 26.8 % (24.0-44.0); MEAN CORPUSCULAR HEMOGLOBIN 33.5 pg (27.0-33.0); MEAN CORPUSCULAR HGB CONC 33.7 g/dl (32.0-36.5); MEAN CORPUSCULAR VOLUME 99.4 fl (80.0-96.0); MONO # 0.5 10^3/uL (0.0-0.8); MONO % 11.4 % (2.0-8.0); NEUTROPHILS # 2.5 10^3/uL (1.5-8.5); NEUTROPHILS % 57.6 % (36.0-66.0); PLATELET COUNT, AUTOMATED 115 10^3/uL (150-450); RED BLOOD COUNT 5.28 10^6/uL (4.30-6.10); WHITE BLOOD COUNT 4.3 10^3/uL (4.0-10.0)
[2022-04-26 11:29] LABS: INR 0.95; PROTHROMBIN TIME 12.9 SECONDS (12.5-14.5)
[2022-04-26 11:30] LABS: PARTIAL THROMBOPLASTIN TIME 27.7 SECONDS (24.8-34.2)
[2022-04-26 11:42] LABS: LIPASE 47 U/L (12-53)
[2022-04-26 11:44] LABS: ALBUMIN 3.9 G/DL (3.2-5.2); ALKALINE PHOSPHATASE 81 U/L (46-116); ALT/SGPT 22 U/L (7.0-40); AST/SGOT 27 U/L (<34); BILIRUBIN,DIRECT 0.2 MG/DL (<0.4); BILIRUBIN,TOTAL 0.5 MG/DL (0.3-1.2); BLOOD UREA NITROGEN 18 MG/DL (9-23); CALCIUM LEVEL 8.9 MG/DL (8.3-10.6); CARBON DIOXIDE LEVEL 27 MMOL/L (20-31); CHLORIDE LEVEL 103 MMOL/L (98-107); CPK CREATINE PHOSPHOKINASE 179 U/L (46-171); CREATININE FOR GFR 1.03 MG/DL (0.70-1.30); GLOMERULAR FILTRATION RATE > 60.0 (>49); GLUCOSE, FASTING 87 MG/DL (74-106); POTASSIUM SERUM 4.6 MMOL/L (3.5-5.1); SODIUM LEVEL 137 MMOL/L (136-145); TOTAL PROTEIN 6.9 G/DL (5.7-8.2)
[2022-04-26 11:45] LABS: CK-MB VALUE MASS 1.5 NG/ML (<3.6); MB/CK RELATIVE INDEX 0.83 (< OR =4)
[2022-04-26 12:03] LABS: RSV AMPLIFICATION NEGATIVE (NEGATIVE)
[2022-04-26] MEDS ORDERED: ISOVUE-370 76% 100ML VIAL As Ordered ONE (12:23)
[2022-04-26 12:31] LABS: CK-MB VALUE MASS 1.5 NG/ML (<3.6); MB/CK RELATIVE INDEX 0.88 (< OR =4)
[2022-04-26 13:48] VITALS: BP 138/66
== END 2022-04-26 14:01 | disposition home or self-care (01) ==
LOC: M ED 10:13
DX: J09.X2 Influenza due to identified novel influenza A virus with other respiratory manifestations (principal); R07.89 Other chest pain; I25.10 Atherosclerotic heart disease of native coronary artery without angina pectoris; I10 Essential (primary) hypertension; E78.5 Hyperlipidemia, unspecified; J44.9 Chronic obstructive pulmonary disease, unspecified; F32.A Depression, unspecified; F41.9 Anxiety disorder, unspecified; G43.909 Migraine, unspecified, not intractable, without status migrainosus; Z95.5 Presence of coronary angioplasty implant and graft; F17.200 Nicotine dependence, unspecified, uncomplicated; Z79.82 Long term (current) use of aspirin; Z79.899 Other long term (current) drug therapy
CPT/HCPCS: 36415; 71045; 71275; 80048; 80076; 82550; 82553; 83690; 83880; 84443; 84484; 85025; 85610; 85730; 87631; 93005; 93041; 94760; 99285; Q9967

== ENCOUNTER → 2022-09-25 | Outpatient (REF) | payer MEDICARE ==
[~2022-09-25] MED LIST changes: +AMIT25TA17 PO; +FLUT1BLS8 INH
[2022-09-25 17:45] LABS: BASO # 0.1 10^3/uL (0.0-0.2); BASO % 0.8 % (0.0-1.0); EOS # 0.3 10^3/uL (0.0-0.5); EOS % 4.8 % (0.0-3.0); HEMATOCRIT 49.6 % (42.0-52.0); HEMOGLOBIN 16.6 g/dl (13.5-17.5); LYMPH # 1.9 10^3/uL (1.5-5.0); LYMPH % 27.8 % (24.0-44.0); MEAN CORPUSCULAR HEMOGLOBIN 33.8 pg (27.0-33.0); MEAN CORPUSCULAR HGB CONC 33.5 g/dl (32.0-36.5); MONO # 0.5 10^3/uL (0.0-0.8); MONO % 7.7 % (2.0-8.0); NEUTROPHILS # 3.9 10^3/uL (1.5-8.5); NEUTROPHILS % 58.7 % (36.0-66.0); PLATELET COUNT, AUTOMATED 130 10^3/uL (150-450); RED BLOOD COUNT 4.91 10^6/uL (4.30-6.10); WHITE BLOOD COUNT 6.7 10^3/uL (4.0-10.0)
[2022-09-25 18:00] LABS: ALBUMIN 3.7 G/DL (3.2-5.2); ALKALINE PHOSPHATASE 82 U/L (46-116); ALT/SGPT 21 U/L (7.0-40); AST/SGOT 21 U/L (<34); BILIRUBIN,TOTAL 0.4 MG/DL (0.3-1.2); BLOOD UREA NITROGEN 17 MG/DL (9-23); CARBON DIOXIDE LEVEL 26 MMOL/L (20-31); CHLORIDE LEVEL 106 MMOL/L (98-107); CHOLESTEROL LEVEL 105 MG/DL (<200); CREATININE FOR GFR 1.01 MG/DL (0.70-1.30); GLOMERULAR FILTRATION RATE > 60.0 (>49); GLUCOSE, FASTING 87 MG/DL (74-106); HDL CHOLESTEROL 36.2 MG/DL (>40); LDL CHOLESTEROL 58.4 MG/DL (<100); NON-HDL-C 68.8 MG/DL; POTASSIUM SERUM 4.5 MMOL/L (3.5-5.1); SODIUM LEVEL 139 MMOL/L (136-145); TOTAL PROTEIN 6.3 G/DL (5.7-8.2); TRIGLYCERIDES LEVEL 52 MG/DL (<150)
[2022-09-25 18:03] LABS: THYROID STIMULATING HORMONE 1.224 uIU/ML (0.55-4.78)
== END ==
LOC: M SFHCCLAY 13:39
PROVIDERS: ATTEND Physician Assistant
DX: I10 Essential (primary) hypertension (principal); E78.5 Hyperlipidemia, unspecified; F41.9 Anxiety disorder, unspecified; Z12.5 Encounter for screening for malignant neoplasm of prostate
CPT/HCPCS: 80053; 80061; 84443; 85025; G0103

== ENCOUNTER → 2022-12-10 | Outpatient (REF) | payer MEDICARE ==
[~2022-12-10] MED LIST changes: -AMIT25TA17 PO; +AMIT25TA19 PO
[2022-12-10 18:41] LABS: BLOOD UREA NITROGEN 22 MG/DL (9-23); CREATININE FOR GFR 1.07 MG/DL (0.70-1.30); GLOMERULAR FILTRATION RATE > 60.0 (>49)
== END ==
LOC: M LABDRAWC 17:38
PROVIDERS: ATTEND Physician Assistant
DX: R91.8 Other nonspecific abnormal finding of lung field (principal)

== ENCOUNTER → 2022-12-11 | Outpatient (CLI) | payer MEDICARE ==
[~2022-12-11] MED LIST changes: +ISOVUE-370 76% 100ML VIAL As Ordered ONE
== END ==
LOC: M RAD 07:26
PROVIDERS: ATTEND Physician Assistant
DX: R91.8 Other nonspecific abnormal finding of lung field (principal)
CPT/HCPCS: 71260; Q9967

== ENCOUNTER → 2024-01-28 | Outpatient (CLI) | payer MEDICARE ==
[~2024-01-28] MED LIST changes: +ALBU2.5V10 NEB; +ASPI81TA25 PO; -ISOVUE-370 76% 100ML VIAL As Ordered ONE; +NITR0.4S14 SL; +TRAZ-186 PO
== END ==
LOC: M RAD 09:51
PROVIDERS: ATTEND Physician Assistant
DX: Z87.891 Personal history of nicotine dependence (principal)

== ENCOUNTER 2024-01-29 06:39 | Observation (INO) | payer MEDICARE ==
[~2024-01-29] VITALS: Ht 177.8 cm; Wt 97.1 kg
[~2024-01-29 06:39] MED LIST changes: -ALBU2.5V10 NEB; -ASPI81TA25 PO; -NITR0.4S14 SL; -TRAZ-186 PO
[2024-01-29] MEDS: NITROGLYCERIN 0.4MG SUBL TABLET SL PRN (07:12)
[2024-01-29 07:24] LABS: BASO % 0.5 % (0.0-1.0); EOS # 0.5 10^3/uL (0.0-0.5); EOS % 7.1 % (0.0-3.0); HEMATOCRIT 48.1 % (42.0-52.0); HEMOGLOBIN 16.6 g/dl (13.5-17.5); LYMPH # 1.5 10^3/uL (1.5-5.0); LYMPH % 20.1 % (24.0-44.0); MEAN CORPUSCULAR HEMOGLOBIN 33.9 pg (27.0-33.0); MEAN CORPUSCULAR HGB CONC 34.5 g/dl (32.0-36.5); MEAN CORPUSCULAR VOLUME 98.4 fl (80.0-96.0); MONO # 0.6 10^3/uL (0.0-0.8); MONO % 7.9 % (2.0-8.0); NEUTROPHILS # 4.7 10^3/uL (1.5-8.5); NEUTROPHILS % 64.1 % (36.0-66.0); PLATELET COUNT, AUTOMATED 126 10^3/uL (150-450); RED BLOOD COUNT 4.89 10^6/uL (4.30-6.10); WHITE BLOOD COUNT 7.3 10^3/uL (4.0-10.0)
[2024-01-29 07:53] LABS: CK-MB VALUE MASS 1.8 NG/ML (<3.6)
[2024-01-29 07:55] LABS: CALCIUM LEVEL 9.2 MG/DL (8.3-10.6); CREATININE FOR GFR 1.46 MG/DL (0.70-1.30); GLOMERULAR FILTRATION RATE 51.3 (>49); POTASSIUM SERUM 4.3 MMOL/L (3.5-5.1)
[2024-01-29] MEDS ORDERED: ISOVUE-370 76% 100ML VIAL As Ordered ONE (08:03)
[2024-01-29 09:09] LABS: CK-MB VALUE MASS 1.5 NG/ML (<3.6)
[2024-01-29 09:10] LABS: MB/CK RELATIVE INDEX 1.05 (< OR =4)
[2024-01-29 11:26] LABS: ALBUMIN 3.5 G/DL (3.2-5.2); BILIRUBIN,DIRECT 0.1 MG/DL (<0.4); BILIRUBIN,TOTAL 0.4 MG/DL (0.3-1.2); MAGNESIUM LEVEL 1.7 MG/DL (1.8-2.4); TOTAL PROTEIN 6.3 G/DL (5.7-8.2)
[2024-01-29] MEDS: MAG SULF 1GM/100ML (MAG RUN) 1 GM in IV 1 EA IV ONE (12:53)
[2024-01-29] MEDS ORDERED: TRAZ-186 PO (14:45)
[2024-01-29] MEDS ORDERED: NITR0.4S14 SL (14:45)
[2024-01-29] MEDS ORDERED: ASPI81TA25 PO (14:45)
[2024-01-29] MEDS ORDERED: ALBU2.5V10 NEB (14:47)
[2024-01-29] MEDS ORDERED: HOME MED LIST COMPLETE! XX SCH (14:50)
[2024-01-29] MEDS ORDERED: traZODone 50 MG TAB PO PRN (15:00)
[2024-01-29] MEDS ORDERED: ALBUTEROL SULFATE 2.5MG/0.5ML INH NEB SOLN NEB PRN (15:00)
[2024-01-29] MEDS: CARVedilol 3.125 MG TAB PO ONE (16:07)
[2024-01-29] MEDS: NS 500 ML IV ONE (16:07)
[2024-01-29] MEDS ORDERED: NICOTINE 14 MG/24 HR TRANSDERMAL TD PRN (16:55)
[2024-01-29] MEDS: NS 1,000 ML IV SCH (17:48)
[2024-01-29 17:57] LABS: IONIZED CALCIUM 4.8 MG/DL (4.5-5.3)
[2024-01-29] MEDS: METOPROLOL TART 12.5 MG PER 1/2 TAB PO ONE (18:20)
[2024-01-29 18:21] LABS: POTASSIUM SERUM 4.9 MMOL/L (3.5-5.1)
[2024-01-29 18:22] LABS: CK-MB VALUE MASS 2.3 NG/ML (<3.6)
[2024-01-29 18:23] LABS: MB/CK RELATIVE INDEX 1.34 (< OR =4)
[2024-01-29] MEDS: SYMBICORT 160/4.5MCG INHALER 6GM INH SCH (19:33)
[2024-01-29] MEDS ORDERED: METOPROLOL TART 12.5 MG PER 1/2 TAB PO SCH (21:00)
[2024-01-29] MEDS: ATORVASTATIN 20 MG TAB PO SCH (21:14)
[2024-01-29] MEDS: RAMELTEON 8 MG TAB (ROZEREM) PO SCH (21:14)
[2024-01-29] MEDS: AMITRIPTYLINE 25MG TABLET PO SCH (21:14)
[2024-01-29 22:14] VITALS: BP 151/69; TEMP 97.2; O2SAT 93
[2024-01-29 23:23] VITALS: BP 114/56; TEMP 97.4; O2SAT 93
[2024-01-30] MEDS: METOPROLOL TART 12.5 MG PER 1/2 TAB PO SCH
[2024-01-30 00:31] LABS: IONIZED CALCIUM 4.7 MG/DL (4.5-5.3)
[2024-01-30 01:05] LABS: MAGNESIUM LEVEL 1.9 MG/DL (1.8-2.4); POTASSIUM SERUM 4.2 MMOL/L (3.5-5.1)
[2024-01-30 01:06] LABS: CK-MB VALUE MASS 1.8 NG/ML (<3.6)
[2024-01-30 01:07] LABS: MB/CK RELATIVE INDEX 1.22 (< OR =4)
[2024-01-30 03:34] VITALS: BP 128/56; TEMP 97.7; O2SAT 94
[2024-01-30 05:36] VITALS: BP 128/56
[2024-01-30 06:16] LABS: BASO % 0.5 % (0.0-1.0); EOS # 0.6 10^3/uL (0.0-0.5); EOS % 8.4 % (0.0-3.0); HEMATOCRIT 46.5 % (42.0-52.0); LYMPH # 1.5 10^3/uL (1.5-5.0); LYMPH % 19.4 % (24.0-44.0); MEAN CORPUSCULAR HEMOGLOBIN 33.9 pg (27.0-33.0); MEAN CORPUSCULAR HGB CONC 34.4 g/dl (32.0-36.5); MEAN CORPUSCULAR VOLUME 98.5 fl (80.0-96.0); MONO # 0.5 10^3/uL (0.0-0.8); MONO % 6.9 % (2.0-8.0); NEUTROPHILS # 4.9 10^3/uL (1.5-8.5); NEUTROPHILS % 64.7 % (36.0-66.0); PLATELET COUNT, AUTOMATED 116 10^3/uL (150-450); RED BLOOD COUNT 4.72 10^6/uL (4.30-6.10); WHITE BLOOD COUNT 7.6 10^3/uL (4.0-10.0)
[2024-01-30 06:40] LABS: HEMOGLOBIN A1c 5.5 % (4.0-6.0)
[2024-01-30 06:42] LABS: CK-MB VALUE MASS 1.6 NG/ML (<3.6); LIPASE 42 U/L (12-53)
[2024-01-30 06:43] LABS: MB/CK RELATIVE INDEX 1.15 (< OR =4)
[2024-01-30 06:49] LABS: ALKALINE PHOSPHATASE 94 U/L (46-116); ALT/SGPT 17 U/L (7.0-40); AST/SGOT 15 U/L (<34); BILIRUBIN,TOTAL 0.7 MG/DL (0.3-1.2); BLOOD UREA NITROGEN 19 MG/DL (9-23); CALCIUM LEVEL 8.7 MG/DL (8.3-10.6); CARBON DIOXIDE LEVEL 28 MMOL/L (20-31); CHLORIDE LEVEL 109 MMOL/L (98-107); CHOLESTEROL LEVEL 106 MG/DL (<200); CHOLESTEROL RISK RATIO 3.47 (<5); CREATININE FOR GFR 1.02 MG/DL (0.70-1.30); GLOMERULAR FILTRATION RATE > 60.0 (>49); GLUCOSE, FASTING 85 MG/DL (74-106); HDL CHOLESTEROL 30.5 MG/DL (>40); LDL CHOLESTEROL 56.1 MG/DL (<100); MAGNESIUM LEVEL 1.8 MG/DL (1.8-2.4); NON-HDL-C 75.5 MG/DL; POTASSIUM SERUM 4.7 MMOL/L (3.5-5.1); SODIUM LEVEL 140 MMOL/L (136-145); TOTAL PROTEIN 5.6 G/DL (5.7-8.2); TRIGLYCERIDES LEVEL 97 MG/DL (<150)
[2024-01-30] MEDS ORDERED: NICO14PA TD (07:18)
[2024-01-30] MEDS ORDERED: MAGN71.5 PO (07:20)
[2024-01-30] MEDS ORDERED: PRIL20TA2 PO (07:21)
[2024-01-30] MEDS ORDERED: NITR0.4S14 SL (07:30)
[2024-01-30] MEDS ORDERED: SELF1KIT MC (07:31)
[2024-01-30 07:52] VITALS: BP 121/58; TEMP 97.4; O2SAT 91
[2024-01-30] MEDS: TIOTROPIUM INHALER/CAPSULE (SPIRIVA) INH SCH (08:00)
[2024-01-30] MEDS: ASPIRIN 81MG ENTERIC TABLET PO SCH (08:28)
[2024-01-30] MEDS: MAG SULF 1GM/100ML (MAG RUN) 1 GM in IV 1 EA IV SCH (08:28)
== END 2024-01-30 12:26 | disposition home or self-care (01) ==
LOC: M ED 06:39 → M ED INP 06:40 → M PCU 22:17
PROVIDERS: ADMIT General Practice; ATTEND General Practice
DX: R07.9 Chest pain, unspecified (principal); N17.9 Acute kidney failure, unspecified; E87.8 Other disorders of electrolyte and fluid balance, not elsewhere classified; E83.42 Hypomagnesemia; I47.29 Other ventricular tachycardia; I49.3 Ventricular premature depolarization; R79.9 Abnormal finding of blood chemistry, unspecified; R94.31 Abnormal electrocardiogram [ECG] [EKG]; E88.810 Metabolic syndrome; I71.40 Abdominal aortic aneurysm, without rupture, unspecified; I72.3 Aneurysm of iliac artery; I25.10 Atherosclerotic heart disease of native coronary artery without angina pectoris; Z95.5 Presence of coronary angioplasty implant and graft; I25.2 Old myocardial infarction; I50.31 Acute diastolic (congestive) heart failure; F17.200 Nicotine dependence, unspecified, uncomplicated; E66.9 Obesity, unspecified; Z68.30 Body mass index [BMI] 30.0-30.9, adult; I11.0 Hypertensive heart disease with heart failure; E78.5 Hyperlipidemia, unspecified; J44.9 Chronic obstructive pulmonary disease, unspecified; R51.9 Headache, unspecified; F41.9 Anxiety disorder, unspecified; G47.00 Insomnia, unspecified; Z87.891 Personal history of nicotine dependence; Z79.899 Other long term (current) drug therapy; Z79.82 Long term (current) use of aspirin; Z79.51 Long term (current) use of inhaled steroids
CPT/HCPCS: 36415; 71045; 71275; 74176; 80048; 80053; 80061; 80076; 82330; 82550; 82553; 83036; 83690; 83735; 83880; 84132; 84443; 84484; 85025; 85730; 93005; 93041; 93306; 94640; 94664; 94760; 96361; 96365; 99285; G0378; J3475; Q9967

== ENCOUNTER → 2024-05-12 | Outpatient (REF) | payer MEDICARE ==
[~2024-05-12] MED LIST changes: +ALBU2.5V10 NEB; +ASPI81TA25 PO; +MAGN71.5 PO; +NICO14PA TD; +NITR0.4S14 SL; +PRIL20TA2 PO; +SELF1KIT MC; +TRAZ-186 PO
[2024-05-12 13:26] LABS: HEMOGLOBIN 17.4 g/dl (13.5-17.5); MEAN CORPUSCULAR HEMOGLOBIN 34.7 pg (27.0-33.0); MEAN CORPUSCULAR HGB CONC 34.1 g/dl (32.0-36.5); MEAN CORPUSCULAR VOLUME 101.8 fl (80.0-96.0); PLATELET COUNT, AUTOMATED 110 10^3/uL (150-450); RED BLOOD COUNT 5.01 10^6/uL (4.30-6.10); WHITE BLOOD COUNT 6.4 10^3/uL (4.0-10.0)
[2024-05-12 13:35] LABS: ALBUMIN 3.6 G/DL (3.2-5.2); ALKALINE PHOSPHATASE 101 U/L (40-129); ALT/SGPT 26 U/L (7.0-40); AST/SGOT 23 U/L (<34); BILIRUBIN,TOTAL 0.4 MG/DL (0.3-1.2); BLOOD UREA NITROGEN 18 MG/DL (9-23); CALCIUM LEVEL 9.6 MG/DL (8.3-10.6); CARBON DIOXIDE LEVEL 30 MMOL/L (20-31); CHLORIDE LEVEL 108 MMOL/L (98-107); CHOLESTEROL LEVEL 116 MG/DL (<200); CHOLESTEROL RISK RATIO 2.81 (<5); CREATININE FOR GFR 1.03 MG/DL (0.70-1.30); GLOMERULAR FILTRATION RATE > 60.0 (>49); GLUCOSE, FASTING 89 MG/DL (74-106); HDL CHOLESTEROL 41.2 MG/DL (>40); LDL CHOLESTEROL 62.2 MG/DL (<100); NON-HDL-C 74.8 MG/DL; POTASSIUM SERUM 5.1 MMOL/L (3.5-5.1); SODIUM LEVEL 141 MMOL/L (136-145); TRIGLYCERIDES LEVEL 63 MG/DL (<150)
[2024-05-12 13:37] LABS: THYROID STIMULATING HORMONE 1.817 uIU/ML (0.55-4.78)
== END ==
LOC: M LAB REF 12:38
PROVIDERS: ATTEND Student in an Organized Health Care Education/Training Program
DX: Z00.01 Encounter for general adult medical examination with abnormal findings (principal); I10 Essential (primary) hypertension

== ENCOUNTER → 2024-08-18 | Outpatient (REF) | payer MEDICARE ==
[2024-08-18 13:43] LABS: BASO # 0.1 10^3/uL (0.0-0.2); BASO % 0.7 % (0.0-1.0); EOS # 0.3 10^3/uL (0.0-0.5); EOS % 4.6 % (0.0-3.0); HEMATOCRIT 50.2 % (42.0-52.0); HEMOGLOBIN 16.8 g/dl (13.5-17.5); LYMPH # 1.7 10^3/uL (1.5-5.0); LYMPH % 22.8 % (24.0-44.0); MEAN CORPUSCULAR HEMOGLOBIN 33.4 pg (27.0-33.0); MEAN CORPUSCULAR HGB CONC 33.5 g/dl (32.0-36.5); MEAN CORPUSCULAR VOLUME 99.8 fl (80.0-96.0); MONO # 0.7 10^3/uL (0.0-0.8); MONO % 8.7 % (2.0-8.0); NEUTROPHILS # 4.7 10^3/uL (1.5-8.5); NEUTROPHILS % 63.1 % (36.0-66.0); PLATELET COUNT, AUTOMATED 122 10^3/uL (150-450); RED BLOOD COUNT 5.03 10^6/uL (4.30-6.10); WHITE BLOOD COUNT 7.5 10^3/uL (4.0-10.0)
[2024-08-18 13:46] LABS: PSA SCREENING 0.33 NG/ML (< 4.00)
[2024-08-18 13:55] LABS: FOLATE 11.4 NG/ML (>5.4)
== END ==
LOC: M LAB REF 13:03
PROVIDERS: ATTEND Student in an Organized Health Care Education/Training Program
DX: D69.6 Thrombocytopenia, unspecified (principal); D75.89 Other specified diseases of blood and blood-forming organs; Z12.5 Encounter for screening for malignant neoplasm of prostate
CPT/HCPCS: 82607; 82746; 85025; G0103

== ENCOUNTER → 2024-09-01 | Outpatient (REF) | payer MEDICARE ==
[2024-09-01 12:25] LABS: PARTIAL THROMBOPLASTIN TIME 25.1 SECONDS (24.8-34.2); PROTHROMBIN TIME 13.5 SECONDS (12.5-14.5)
== END ==
LOC: M LAB REF 12:04
PROVIDERS: ATTEND Student in an Organized Health Care Education/Training Program
DX: D69.6 Thrombocytopenia, unspecified (principal)